=== PATIENT | female | born 1955 | race Caucasian/White ===

== ENCOUNTER → 2016-07-30 | Outpatient (CLI) | payer BC, OTHER ==
[2016-07-30 08:26] LABS: CHLORIDE,CL 103 mmol/L (98-110); SODIUM,NA 138 mmol/L (136-146)
== END ==
LOC: MW.CHFP 07:32
PROVIDERS: ATTEND Family Medicine
DX: E11.9 Type 2 diabetes mellitus without complications (principal); I10 Essential (primary) hypertension
CPT/HCPCS: 36415; 80053; 80061; 82652; 83036; 84443; 85027

== ENCOUNTER 2016-10-14 22:44 | Emergency (ER) | payer OTHER, BC ==
[2016-10-14] MEDS ORDERED: Diphtheria,Pertussis(Acell),Tetanus Vaccine 0.5 ML Syringe IM ONE (23:43)
--- NOTE | 2016-10-14 23:48 | EDM.PDOC ---
ED HPI GENERAL MEDICAL PROBLEM - General Chief Complaint: Head Injury Time Seen by Provider: 10/14/16 23:44 Source of Information: Reports: Patient, RN - History of Present Illness INITIAL COMMENTS - FREE TEXT/NARRATIVE: she stepped wrong off a ladder and fell back hitting her head on the floor. She has a posterior scalp laceration no vomiting no LOC denies other injury - Related Data Allergies Allergy/AdvReac Type Severity Reaction Status Date / Time No Known Allergies Allergy Verified 10/14/16 23:32 Home Meds: Home Meds Lisinopril 20 mg PO DAILY 10/14/16 [History] Past Medical History - Past Health History Medical/Surgical History: Denies Medical/Surgical History HEENT History: Reports: Retinal Detachment Cardiovascular History: Reports: Hypertension Social & Family History - Family History Family Medical History: Noncontributory ED ROS GENERAL - Review of Systems Review Of Systems: See Below (no LOC; denies other injury; unsure of last tetanus booster) ED EXAM, HEAD INJURY - Physical Exam Exam: See Below Text/Narrative:: alert normal mentation pupils equal eoms normal normal speech no c spine tenderness no facial droop no motor asymmetry posterior scalp with 1-2 cm laceration without any active bleeding; wound edges well approximated such that closure not required. no FB noted in wound. Course - Vital Signs Last Recorded V/S: Last Vital Signs Temp 97.5 F 10/14/16 23:00 Pulse 89 10/14/16 23:00 Resp 20 10/14/16 23:00 BP 153/93 H 10/14/16 23:00 Pulse Ox 98 10/14/16 23:00 - Orders/Labs/Meds Orders: Active Orders 24 hr Category Date Time Status Communication Order [RC] PER UNIT ROUTINE Care 10/14/16 23:43 Ordered Vaccines to be Administered [RC] PER UNIT ROUTINE Care 10/14/16 23:43 Ordered Head wo Cont [CT] Stat Exams 10/14/16 23:08 Taken Meds: Medications Discontinued Medications Generic Name Dose Route Start Last Admin Trade Name Freq PRN Reason Stop Dose Admin Diphtheria/Tetanus/Acell Pertussis 0.5 ml 10/14/16 23:43 Adacel IM 10/14/16 23:44 .ONCE ONE Departure - Departure Time of Disposition: 23:49 Disposition: Home, Self-Care 01 Condition: Good Clinical Impression: Scalp laceration - Discharge Information Referrals: PCP,None [Primary Care Provider] - Forms: ED Department Discharge Additional Instructions: cleanse wound daily with gentle use of shampoo; rinse thoroughly with water; recheck for signs of infection. your blood pressure was elevated; a recheck with your doctor is recommended. - My Orders Last 24 Hours: My Active Orders 10/14/16 23:08 Head wo Cont [CT] Stat 10/14/16 23:43 Communication Order [RC] PER UNIT ROUTINE Vaccines to be Administered [RC] PER UNIT ROUTINE - Assessment/Plan Last 24 Hours: My Active Orders 10/14/16 23:08 Head wo Cont [CT] Stat 10/14/16 23:43 Communication Order [RC] PER UNIT ROUTINE Vaccines to be Administered [RC] PER UNIT ROUTINE
[2016-10-15 00:36] VITALS: BP 169/90
--- NOTE | 2016-10-15 09:30 | CT ---
EXAM DATE: 10/14/16 PATIENT'S AGE: 61 Patient: AMADOU MACKENZIE Facility: [facility] [place] Site . Site : [id number] Study: CT Head [id number] 11:22:52 PM Ordering Physician: Doctor David Final Report: INDICATION: fall, head injury TECHNIQUE: CT Head without contrast. COMPARISON: None. FINDINGS: There is no sign of intracranial hemorrhage or mass effect. Mild diffuse cerebral atrophy. Minimal nonspecific low-attenuation along the periventricular white matter, most likely related to chronic microvascular disease. Ventricles and sulci are symmetric and midline. The benavides-white differentiation is preserved. No abnormal intra-axial or extra-axial fluid collection. No acute disease of the visualized paranasal sinuses and mastoid air cells. No fracture evident. Left posterior scalp hematoma/laceration. IMPRESSION: 1. No acute intracranial process. 2. Left posterior scalp hematoma/laceration. Dictated by: Andres Jose MD @ 10/14/2016 23:43:07 (Electronic Signature) Report Signed by Proxy. [facility]
== END 2016-10-15 00:16 | disposition home or self-care (01) ==
LOC: MW.ED 22:44
DX: S01.01XA Laceration without foreign body of scalp, initial encounter (principal); I10 Essential (primary) hypertension; Z23 Encounter for immunization; W11.XXXA Fall on and from ladder, initial encounter
CPT/HCPCS: 12001; 70450; 70450-26; 90471; 90715; 99282; 99284-25

== ENCOUNTER 2024-01-07 17:02 | Emergency (ER) | payer OTHER, BC ==
[2024-01-07 17:14] LABS: BASOPHILS ABSOLUTE AUTO 0.02 K/uL (0.00-0.20); BASOPHILS PERCENT AUTO 0.2 % (0.0-1.0); EOSINOPHILS ABSOLUTE AUTO 0.14 K/uL (0.00-0.45); EOSINOPHILS PERCENT AUTO 1.6 % (0.0-6.0); HEMATOCRIT 34.2 % (37.0-47.0); HEMOGLOBIN 11.7 g/dL (12.0-16.0); IMMATURE GRAN ABSOLUTE AUTO 0.05 K/uL (0.00-0.05); IMMATURE GRAN PERCENT AUTO 0.6 % (0.0-0.4); LYMPHOCYTES ABSOLUTE AUTO 1.79 K/uL (1.00-4.80); LYMPHOCYTES PERCENT AUTO 20.5 % (24.0-44.0); MEAN CORPUSCULAR HEMOGLOBIN 32.1 pg (28.0-32.0); MEAN CORPUSCULAR HGB CONC 34.2 g/dL (32.0-36.0); MEAN PLATELET VOLUME 9.5 fL (9.4-12.3); MONOCYTES ABSOLUTE AUTO 0.68 K/uL (0.00-0.80); MONOCYTES PERCENT AUTO 7.8 % (0.0-8.0); NEUTROPHILS ABSOLUTE AUTO 6.07 K/uL (1.80-7.70); NEUTROPHILS PERCENT AUTO 69.3 % (41.0-71.0); PLATELET COUNT,PLT 249 K/uL (150-400); RED BLOOD CELL COUNT 3.64 M/uL (4.10-5.30); WHITE BLOOD CELL COUNT,WBC 8.75 K/uL (3.9-11.3)
[2024-01-07] MEDS: Iopamidol 755 MG/ML 500 ML Multipack Bottle IVPUSH STA (17:34)
[2024-01-07] MEDS: Sodium Chloride 0.9% 10 ML Syringe FLUSH PRN (17:44)
[2024-01-07] MEDS: Lidocaine 1% with EPINEPHrine 1:100,000 10 ML MDV INJECT ONE (17:44)
[2024-01-07 17:45] LABS: A/G RATIO 1.2 (0.9-1.6); ALANINE AMINOTRANSFERASE,ALT 22 IU/L (14-63); ALBUMIN 3.5 g/dL (3.4-5.0); ALKALINE PHOSPHATASE 61 U/L (46-116); ASPARTATE AMNIOTRANSFERASE,AST 17 IU/L (15-37); BILIRUBIN TOTAL 0.2 mg/dL (0.2-1.0); BLOOD UREA NITROGEN,BUN 25 mg/dL (7.0-18.0); CALCIUM 8.8 mg/dL (8.5-10.1); CARBON DIOXIDE,CO2 27.1 mmol/L (21.0-32.0); CHLORIDE,CL 105 mmol/L (98-107); CREATININE 0.9 mg/dL (0.6-1.0); GLUCOSE RANDOM 135 mg/dL (74-106); LIPASE 37 U/L (16-77); POTASSIUM,K 3.7 mmol/L (3.5-5.1); PROTEIN TOTAL,TP 6.4 g/dL (6.4-8.2); SODIUM,NA 139 mmol/L (136-145)
[2024-01-07 17:50] LABS: ESTIMATED GFR 70 mL/min (>60)
[2024-01-07] MEDS: Acetaminophen 500 MG Tab PO ONE (18:41)
[2024-01-07] MEDS: Ondansetron 4 MG/2 ML SDV IVPUSH ONE (20:11)
[2024-01-07] MEDS: Morphine 2 MG/ML SYRINGE IVPUSH ONE (20:12)
[2024-01-07 20:57] VITALS: BP 156/72; PULSE 78
== END 2024-01-07 20:45 ==
LOC: MW.ED 17:02
DX: S06.6XAA Traumatic subarachnoid hemorrhage with loss of consciousness status unknown, initial encounter (principal); S06.5X9A Traumatic subdural hemorrhage with loss of consciousness of unspecified duration, initial encounter; S92.151A Displaced avulsion fracture (chip fracture) of right talus, initial encounter for closed fracture; S82.831A Other fracture of upper and lower end of right fibula, initial encounter for closed fracture; S82.832A Other fracture of upper and lower end of left fibula, initial encounter for closed fracture; S82.52XA Displaced fracture of medial malleolus of left tibia, initial encounter for closed fracture; S92.412A Displaced fracture of proximal phalanx of left great toe, initial encounter for closed fracture; S01.01XA Laceration without foreign body of scalp, initial encounter; S90.31XA Contusion of right foot, initial encounter; I10 Essential (primary) hypertension; Z79.899 Other long term (current) drug therapy; V03.90XA Pedestrian on foot injured in collision with car, pick-up truck or van, unspecified whether traffic or nontraffic accident, initial encounter; Y92.410 Unspecified street and highway as the place of occurrence of the external cause; Z75.8 Other problems related to medical facilities and other health care
CPT/HCPCS: 12002; 36415; 70450; 71260; 72125; 73590; 73610; 73620; 74177; 80053; 83690; 85025; 93005; 96374; 96375; 99285; A9270; J1953; J2405; J3490; J7060; Q9967